=== PATIENT | female | born 1950 | race Caucasian/White ===

== ENCOUNTER 2016-04-26 10:26 | Inpatient (IN) | payer OTHER ==
[~2016-04-26] VITALS: Ht 168.9 cm; Wt 54.4 kg
[2016-04-26] MEDS ORDERED: DUONEB INH ONE ×2 (11:01)
[2016-04-26] MEDS ORDERED: NEB-ALBUTEROL 2.5 MG/3 ML INH ONE (11:02)
[2016-04-26] MEDS ORDERED: BISACODYL 10 MG SUPP RECTAL PRN (14:40)
[2016-04-26] MEDS ORDERED: GLUCAGON 1 MG VIAL IM PRN (14:40)
[2016-04-26] MEDS ORDERED: LOPERAMIDE 2 MG CAPSULE PO PRN (14:40)
[2016-04-26] MEDS ORDERED: FLEET ENEMA 132 ML BTL RECTAL PRN (14:40)
[2016-04-26] MEDS ORDERED: BISACODYL EC 5 MG TAB PO PRN (14:40)
[2016-04-26] MEDS ORDERED: MAG HYDROX 30 ML UDC PO PRN (14:40)
[2016-04-26] MEDS ORDERED: ONDANSETRON 4 MG VIAL IV PRN (14:40)
[2016-04-26] MEDS ORDERED: SALINE FLUSH 10 ML FLUSH PRN (14:40)
[2016-04-26] MEDS ORDERED: ALU/MAG/SIM 30 ML UDC PO PRN (14:40)
[2016-04-26] MEDS ORDERED: NICOTINE 21 MG/24 HR TRANSDERM PRN (14:40)
[2016-04-26] MEDS ORDERED: DEXTROSE 50% SYRINGE 50 ML IV PRN (14:40)
[2016-04-26] MEDS ORDERED: ACETAMINOPHEN 325 MG TAB PO PRN (14:40)
[2016-04-26] MEDS ORDERED: GUAIFEN/DM 10 ML UDC PO PRN (14:40)
[2016-04-26] MEDS ORDERED: Furosemide 20 MG TAB PO SCH (14:51)
[2016-04-26] MEDS ORDERED: SPIRONOLACTONE 25 MG TAB PO SCH (14:51)
[2016-04-26] MEDS ORDERED: KCL CR 10 MEQ TAB PO SCH (14:51)
[2016-04-26] MEDS ORDERED: MDI-SPIRIVA 5 DOSES INH SCH (14:52)
[2016-04-26] MEDS: DUONEB INH SCH ×3 (15:00→23:30)
[2016-04-26 17:55] VITALS: BP_SYST 104; RESP 20; TEMP 98.1
[2016-04-26] MEDS: NEB-NACL 3% 4 ML NEBU INH SCH ×2 (18:30→22:30)
[2016-04-26] MEDS: SODIUM CHLORIDE 0.9% 1,000 ML IV SCH (19:39)
[2016-04-26] MEDS: CEFTRIAXONE 1 GM in SODIUM CHLORIDE 0.9% 50 ML IV SCH (19:39)
[2016-04-26 20:27] VITALS: RESP 22
[2016-04-26] MEDS: NEB-BROVANA 15 MCG/2 ML INH SCH (20:27)
[2016-04-26] MEDS: NEB-BUDESONIDE 0.5 MG INH SCH (20:27)
[2016-04-26 20:31] VITALS: BP_SYST 102; BP_SYST 110; RESP 22; TEMP 97.1; TEMP 97.6
[2016-04-26] MEDS: FAMOTIDINE 20 MG TAB PO SCH (20:33)
[2016-04-26] MEDS: PREDNISONE 20 MG TAB PO SCH (20:33)
[2016-04-26] MEDS: THIAMINE 100 MG TAB PO SCH (20:33)
[2016-04-26] MEDS: SOLIFENACIN 5 MG TAB PO SCH (20:33)
[2016-04-26] MEDS: SALINE FLUSH 10 ML FLUSH SCH (20:34)
[2016-04-26] MEDS: TRAZODONE 50 MG TAB PO SCH (20:35)
[2016-04-27] MEDS: DUONEB INH SCH ×6 (02:56→22:57)
[2016-04-27 04:35] VITALS: BP_SYST 110; RESP 16; TEMP 96.5
[2016-04-27] MEDS: SODIUM CHLORIDE 0.9% FLUSH BAG 500 ML IV SCH (06:00)
[2016-04-27] MEDS: NEB-BUDESONIDE 0.5 MG INH SCH ×2 (07:06→19:31)
[2016-04-27] MEDS: NEB-BROVANA 15 MCG/2 ML INH SCH ×2 (07:06→19:31)
[2016-04-27] MEDS: NEB-NACL 3% 4 ML NEBU INH SCH ×4 (07:07→22:57)
[2016-04-27 07:20] VITALS: BP_SYST 98; RESP 18; TEMP 97.1
[2016-04-27] MEDS: SALINE FLUSH 10 ML FLUSH SCH ×2 (08:00→20:00)
[2016-04-27 09:09] VITALS: Ht 168.9 cm; Wt 54.4 kg
[2016-04-27] MEDS: THIAMINE 100 MG TAB PO SCH ×2 (10:12→21:43)
[2016-04-27] MEDS: PREDNISONE 20 MG TAB PO SCH (10:12)
[2016-04-27] MEDS: SOLIFENACIN 5 MG TAB PO SCH (10:12)
[2016-04-27] MEDS: CEFTRIAXONE 1 GM in SODIUM CHLORIDE 0.9% 50 ML IV SCH (10:12)
[2016-04-27] MEDS: FAMOTIDINE 20 MG TAB PO SCH ×2 (10:13→21:43)
[2016-04-27 10:53] VITALS: BP_SYST 104; RESP 16; TEMP 97.1
[2016-04-27 15:41] VITALS: BP_SYST 114; RESP 18; TEMP 97.9
[2016-04-27] MEDS: SODIUM CHLORIDE 0.9% 1,000 ML IV SCH (17:38)
[2016-04-27 20:13] VITALS: BP_SYST 100; RESP 20; TEMP 96.8
[2016-04-27] MEDS: TRAZODONE 50 MG TAB PO SCH (21:43)
[2016-04-28] VITALS (7 sets, daily range): BP systolic 108–136; RESP 16–20; TEMP 96.8–97.9
[2016-04-28] MEDS: SODIUM CHLORIDE 0.9% 1,000 ML IV SCH (02:53)
[2016-04-28] MEDS: SODIUM CHLORIDE 0.9% FLUSH BAG 500 ML IV SCH (05:30)
[2016-04-28] MEDS: SALINE FLUSH 10 ML FLUSH SCH ×2 (08:00→20:00)
[2016-04-28] MEDS: FAMOTIDINE 20 MG TAB PO SCH ×2 (08:24→20:01)
[2016-04-28] MEDS: THIAMINE 100 MG TAB PO SCH ×2 (08:24→20:01)
[2016-04-28] MEDS: CEFTRIAXONE 1 GM in SODIUM CHLORIDE 0.9% 50 ML IV SCH (08:24)
[2016-04-28] MEDS: SOLIFENACIN 5 MG TAB PO SCH (08:24)
[2016-04-28] MEDS: PREDNISONE 20 MG TAB PO SCH (08:25)
[2016-04-28] MEDS: NEB-BROVANA 15 MCG/2 ML INH SCH (18:25)
[2016-04-28] MEDS: NEB-NACL 3% 4 ML NEBU INH SCH ×2 (18:25→22:48)
[2016-04-28] MEDS: DUONEB INH SCH ×2 (18:25→22:48)
[2016-04-28] MEDS: NEB-BUDESONIDE 0.5 MG INH SCH (18:25)
[2016-04-28] MEDS: TRAZODONE 50 MG TAB PO SCH (20:02)
[2016-04-29] MEDS: DUONEB INH SCH ×3 (03:17→10:31)
[2016-04-29] MEDS: SODIUM CHLORIDE 0.9% FLUSH BAG 500 ML IV SCH (04:33)
[2016-04-29 04:40] VITALS: BP_SYST 116; RESP 16; TEMP 97.7
[2016-04-29] MEDS: SODIUM CHLORIDE 0.9% 1,000 ML IV SCH (05:35)
[2016-04-29] MEDS: NEB-BROVANA 15 MCG/2 ML INH SCH (06:22)
[2016-04-29] MEDS: NEB-BUDESONIDE 0.5 MG INH SCH (06:22)
[2016-04-29] MEDS: NEB-NACL 3% 4 ML NEBU INH SCH ×2 (06:22→10:31)
[2016-04-29 07:53] VITALS: BP_SYST 102; RESP 18; TEMP 96.6
[2016-04-29] MEDS: SALINE FLUSH 10 ML FLUSH SCH (08:00)
[2016-04-29] MEDS: CEFTRIAXONE 1 GM in SODIUM CHLORIDE 0.9% 50 ML IV SCH (08:19)
[2016-04-29] MEDS: THIAMINE 100 MG TAB PO SCH (08:20)
[2016-04-29] MEDS: FAMOTIDINE 20 MG TAB PO SCH (08:21)
[2016-04-29] MEDS: SOLIFENACIN 5 MG TAB PO SCH (08:21)
[2016-04-29] MEDS: PREDNISONE 20 MG TAB PO SCH (08:21)
[2016-04-29 11:18] VITALS: BP_SYST 102; RESP 20; TEMP 98.4
[2016-04-29 12:08] VITALS: BP_SYST 102; RESP 20; TEMP 98.4
== END 2016-04-29 14:16 | disposition home or self-care (01) | DRG 189 ==
LOC: ENRESERVDT → ENRESERVTM → ER 10:26 → ENPENDDIS 15:02 → EMR 15:02 → 4NT 17:59
PROVIDERS: ADMIT Family Medicine; ATTEND Family Medicine
DX: J96.21 Acute and chronic respiratory failure with hypoxia (principal); E46 Unspecified protein-calorie malnutrition; J94.2 Hemothorax; E87.1 Hypo-osmolality and hyponatremia; J44.1 Chronic obstructive pulmonary disease with (acute) exacerbation; Z68.1 Body mass index [BMI] 19.9 or less, adult; Z72.0 Tobacco use; B19.20 Unspecified viral hepatitis C without hepatic coma; F32.9 Major depressive disorder, single episode, unspecified; M06.9 Rheumatoid arthritis, unspecified; R73.9 Hyperglycemia, unspecified; T38.0X5A Adverse effect of glucocorticoids and synthetic analogues, initial encounter; Z79.51 Long term (current) use of inhaled steroids; Z85.41 Personal history of malignant neoplasm of cervix uteri; Z90.13 Acquired absence of bilateral breasts and nipples
CPT/HCPCS: 71010; 74230; 80048; 80053; 82553; 82947; 83880; 84484; 85025; 87299; 87804; 93005; 94640; 94667; 94668; 94799; 99223; 99232; 99233; 99239

== ENCOUNTER 2016-05-09 17:38 | Inpatient (IN) | payer OTHER ==
[~2016-05-09] VITALS: Ht 167.6 cm; Wt 55.4 kg
[2016-05-09] MEDS ORDERED: DUONEB INH ONE (17:53)
[2016-05-09] MEDS ORDERED: NEB-ALBUTEROL 2.5 MG/3 ML INH ONE ×2 (17:53→18:20)
[2016-05-09] MEDS ORDERED: ONDANSETRON 4 MG VIAL IV PRN (20:05)
[2016-05-09] MEDS ORDERED: SALINE FLUSH 10 ML FLUSH PRN (20:05)
[2016-05-09 22:00] VITALS: BP_SYST 118; BP_SYST 120; RESP 22; TEMP 98.2
[2016-05-09 22:10] VITALS: BMI 19.7
[2016-05-09 23:00] VITALS: BP_SYST 108; RESP 18; TEMP 96
[2016-05-09] MEDS: DUONEB INH SCH ×2 (23:00→23:06)
[2016-05-09] MEDS: LEVOFLOXACIN 750 MG/150 ML 150 ML IV SCH (23:01)
[2016-05-09] MEDS: SALINE FLUSH 10 ML FLUSH SCH (23:01)
[2016-05-09] MEDS: THIAMINE 100 MG TAB PO SCH (23:02)
[2016-05-09] MEDS: TRAZODONE 50 MG TAB PO SCH (23:02)
[2016-05-09] MEDS: METHYLPRED SOD SUCC 125 MG/2 ML VIAL IV SCH (23:03)
[2016-05-09 23:11] VITALS: RESP 22
[2016-05-10 04:19] VITALS: BP_SYST 104; RESP 18; TEMP 96.6
[2016-05-10] MEDS: SODIUM CHLORIDE 0.9% FLUSH BAG 500 ML IV SCH (05:54)
[2016-05-10 07:22] VITALS: BP_SYST 106; RESP 18; TEMP 97.4
[2016-05-10] MEDS: DUONEB INH SCH ×5 (07:45→23:48)
[2016-05-10] MEDS: SALINE FLUSH 10 ML FLUSH SCH (08:08)
[2016-05-10] MEDS: METHYLPRED SOD SUCC 125 MG/2 ML VIAL IV SCH (08:09)
[2016-05-10] MEDS: LEVOFLOXACIN 750 MG/150 ML 150 ML IV SCH (08:09)
[2016-05-10] MEDS ORDERED: MISSING DOSE XX ONE (08:10)
[2016-05-10] MEDS: THIAMINE 100 MG TAB PO SCH ×2 (08:13→20:51)
[2016-05-10 09:48] VITALS: Ht 167.6 cm; Wt 55.4 kg
[2016-05-10] MEDS ORDERED: NEB-XOPENEX 1.25 MG/3 ML INH PRN (10:05)
[2016-05-10 11:01] VITALS: BP_SYST 114; RESP 16; TEMP 97.3
[2016-05-10] MEDS: SOLIFENACIN 5 MG TAB PO SCH (11:05)
[2016-05-10] MEDS: Furosemide 20 MG TAB PO SCH (11:06)
[2016-05-10] MEDS: FAMOTIDINE 20 MG TAB PO SCH ×2 (11:06→20:52)
[2016-05-10] MEDS: BUSPIRONE HCL 15 MG TAB PO SCH ×2 (11:06→20:52)
[2016-05-10] MEDS: ENOXAPARIN 30 MG/0.3 ML SYR SUBQ SCH (11:07)
[2016-05-10] MEDS: NEB-NACL 3% 4 ML NEBU INH SCH ×3 (12:03→23:48)
[2016-05-10] MEDS: NEB-BUDESONIDE 0.5 MG INH SCH ×2 (12:03→19:30)
[2016-05-10 15:20] VITALS: BP_SYST 110; RESP 18; TEMP 97.4
[2016-05-10] MEDS: METHYLPRED SOD SUCC 40 MG VIAL IV SCH (17:11)
[2016-05-10] MEDS: ALPRAZOLAM 0.25 MG TAB PO PRN (17:12)
[2016-05-10 19:00] VITALS: BP_SYST 120; RESP 18; TEMP 96.9
[2016-05-10] MEDS: NEB-BROVANA 15 MCG/2 ML INH SCH (19:29)
[2016-05-10] MEDS: TRAZODONE 50 MG TAB PO SCH (20:52)
[2016-05-10] MEDS: ESCITALOPRAM 10 MG TAB PO SCH (20:53)
[2016-05-11 00:17] VITALS: BP_SYST 124; RESP 22; TEMP 97.1
[2016-05-11] MEDS: METHYLPRED SOD SUCC 40 MG VIAL IV SCH ×2 (00:31→08:23)
[2016-05-11] MEDS: SALINE FLUSH 10 ML FLUSH SCH ×3 (00:32→20:13)
[2016-05-11] MEDS: ALPRAZOLAM 0.25 MG TAB PO PRN ×2 (00:32→22:08)
[2016-05-11] MEDS: DUONEB INH SCH ×6 (03:34→22:39)
[2016-05-11 04:01] VITALS: BP_SYST 120; RESP 18; TEMP 96.3
[2016-05-11] MEDS: NEB-BROVANA 15 MCG/2 ML INH SCH ×2 (07:01→19:15)
[2016-05-11] MEDS: NEB-NACL 3% 4 ML NEBU INH SCH ×4 (07:01→22:39)
[2016-05-11] MEDS: NEB-BUDESONIDE 0.5 MG INH SCH ×2 (07:01→19:15)
[2016-05-11 07:29] VITALS: BP_SYST 116; RESP 20; TEMP 96.4
[2016-05-11] MEDS: SODIUM CHLORIDE 0.9% FLUSH BAG 500 ML IV SCH (08:22)
[2016-05-11] MEDS: ENOXAPARIN 30 MG/0.3 ML SYR SUBQ SCH (08:22)
[2016-05-11] MEDS: LEVOFLOXACIN 750 MG/150 ML 150 ML IV SCH (08:23)
[2016-05-11] MEDS: BUSPIRONE HCL 15 MG TAB PO SCH ×2 (08:23→20:12)
[2016-05-11] MEDS: FAMOTIDINE 20 MG TAB PO SCH ×2 (08:23→20:12)
[2016-05-11] MEDS: SOLIFENACIN 5 MG TAB PO SCH (08:23)
[2016-05-11] MEDS: THIAMINE 100 MG TAB PO SCH ×2 (08:23→20:12)
[2016-05-11 11:58] VITALS: BP_SYST 130; RESP 22; TEMP 96.9
[2016-05-11] MEDS ORDERED: SODIUM CHLORIDE 0.9% 1,000 ML IV ONE (12:05)
[2016-05-11 15:32] VITALS: BP_SYST 126; RESP 20; TEMP 97
[2016-05-11 19:00] VITALS: BP_SYST 129; RESP 22; TEMP 98.2
[2016-05-11] MEDS: ESCITALOPRAM 10 MG TAB PO SCH (20:12)
[2016-05-11] MEDS: TRAZODONE 50 MG TAB PO SCH (20:13)
[2016-05-12] VITALS (9 sets, daily range): BP systolic 100–120; RESP 18–22; TEMP 97–98.8
[2016-05-12] MEDS: DUONEB INH SCH ×6 (02:54→22:45)
[2016-05-12] MEDS: SODIUM CHLORIDE 0.9% FLUSH BAG 500 ML IV SCH (06:35)
[2016-05-12] MEDS ORDERED: MISSING DOSE XX ONE (07:45)
[2016-05-12] MEDS: NEB-BUDESONIDE 0.5 MG INH SCH ×2 (07:48→19:00)
[2016-05-12] MEDS: NEB-BROVANA 15 MCG/2 ML INH SCH ×2 (07:48→19:00)
[2016-05-12] MEDS: NEB-NACL 3% 4 ML NEBU INH SCH ×4 (07:49→22:45)
[2016-05-12] MEDS: FAMOTIDINE 20 MG TAB PO SCH ×2 (08:39→21:28)
[2016-05-12] MEDS: BUSPIRONE HCL 15 MG TAB PO SCH ×2 (08:39→21:28)
[2016-05-12] MEDS: Furosemide 20 MG TAB PO SCH (08:39)
[2016-05-12] MEDS: SOLIFENACIN 5 MG TAB PO SCH (08:39)
[2016-05-12] MEDS: PREDNISONE 20 MG TAB PO SCH (08:39)
[2016-05-12] MEDS: THIAMINE 100 MG TAB PO SCH ×2 (08:39→21:28)
[2016-05-12] MEDS: LEVOFLOXACIN 750 MG/150 ML 150 ML IV SCH (08:40)
[2016-05-12] MEDS: SALINE FLUSH 10 ML FLUSH SCH ×2 (08:40→21:29)
[2016-05-12] MEDS: ENOXAPARIN 30 MG/0.3 ML SYR SUBQ SCH (08:40)
[2016-05-12] MEDS: ESCITALOPRAM 10 MG TAB PO SCH (21:28)
[2016-05-12] MEDS: TRAZODONE 50 MG TAB PO SCH (21:28)
[2016-05-12] MEDS: ALPRAZOLAM 0.25 MG TAB PO PRN (23:08)
[2016-05-13] MEDS: DUONEB INH SCH ×5 (02:31→22:54)
[2016-05-13 04:22] VITALS: BP_SYST 108; RESP 18; TEMP 97.9
[2016-05-13] MEDS: SODIUM CHLORIDE 0.9% FLUSH BAG 500 ML IV SCH (05:45)
[2016-05-13 07:55] VITALS: BP_SYST 92; RESP 16; TEMP 98.2
[2016-05-13] MEDS: NEB-BROVANA 15 MCG/2 ML INH SCH ×2 (08:05→19:07)
[2016-05-13] MEDS: NEB-NACL 3% 4 ML NEBU INH SCH ×4 (08:05→22:54)
[2016-05-13] MEDS: NEB-BUDESONIDE 0.5 MG INH SCH ×2 (08:05→19:07)
[2016-05-13] MEDS: THIAMINE 100 MG TAB PO SCH ×2 (08:17→21:03)
[2016-05-13] MEDS: BUSPIRONE HCL 15 MG TAB PO SCH ×2 (08:17→21:03)
[2016-05-13] MEDS: LEVOFLOXACIN 750 MG TAB PO SCH (08:17)
[2016-05-13] MEDS: FAMOTIDINE 20 MG TAB PO SCH ×2 (08:17→21:03)
[2016-05-13] MEDS: SOLIFENACIN 5 MG TAB PO SCH (08:17)
[2016-05-13] MEDS: PREDNISONE 20 MG TAB PO SCH (08:18)
[2016-05-13] MEDS: SALINE FLUSH 10 ML FLUSH SCH ×2 (08:18→21:03)
[2016-05-13] MEDS: ENOXAPARIN 30 MG/0.3 ML SYR SUBQ SCH (08:19)
[2016-05-13] MEDS: BISOPROLOL 5 MG TAB PO SCH (08:48)
[2016-05-13] MEDS ORDERED: MISSING DOSE XX ONE (11:25)
[2016-05-13 11:45] VITALS: BP_SYST 112; RESP 20; TEMP 98.3
[2016-05-13] MEDS ORDERED: DUONEB INH SCH (12:00)
[2016-05-13 19:30] VITALS: BP_SYST 112; RESP 20; TEMP 97.9
[2016-05-13] MEDS: TRAZODONE 50 MG TAB PO SCH (21:03)
[2016-05-13] MEDS: ESCITALOPRAM 10 MG TAB PO SCH (21:03)
[2016-05-14] MEDS: DUONEB INH SCH ×4 (02:27→14:38)
[2016-05-14 03:30] VITALS: BP_SYST 100; RESP 18; TEMP 97.7
[2016-05-14] MEDS: SODIUM CHLORIDE 0.9% FLUSH BAG 500 ML IV SCH (06:00)
[2016-05-14] MEDS: NEB-BUDESONIDE 0.5 MG INH SCH (08:06)
[2016-05-14] MEDS: NEB-BROVANA 15 MCG/2 ML INH SCH (08:06)
[2016-05-14] MEDS: NEB-NACL 3% 4 ML NEBU INH SCH ×2 (08:06→10:56)
[2016-05-14 08:17] VITALS: BP_SYST 102; RESP 18; TEMP 98
[2016-05-14] MEDS: LEVOFLOXACIN 750 MG TAB PO SCH (08:26)
[2016-05-14] MEDS: BUSPIRONE HCL 15 MG TAB PO SCH (08:26)
[2016-05-14] MEDS: SALINE FLUSH 10 ML FLUSH SCH (08:26)
[2016-05-14] MEDS: PREDNISONE 20 MG TAB PO SCH (08:27)
[2016-05-14] MEDS: Furosemide 20 MG TAB PO SCH (08:27)
[2016-05-14] MEDS: BISOPROLOL 5 MG TAB PO SCH (08:27)
[2016-05-14] MEDS: FAMOTIDINE 20 MG TAB PO SCH (08:27)
[2016-05-14] MEDS: THIAMINE 100 MG TAB PO SCH (08:27)
[2016-05-14] MEDS: SOLIFENACIN 5 MG TAB PO SCH (08:27)
[2016-05-14] MEDS: ENOXAPARIN 30 MG/0.3 ML SYR SUBQ SCH (08:30)
[2016-05-14 12:50] VITALS: BP_SYST 112; RESP 20; TEMP 97.1
[2016-05-14 13:36] VITALS: BP_SYST 112; RESP 20; TEMP 97.1
== END 2016-05-14 14:45 | disposition home or self-care (01) | DRG 189 ==
LOC: ENRESERVTM → ENRESERVDT → ER 17:38 → EMR 20:02 → ENPENDDIS 20:02 → 4THW 21:54 → 3NT 05-12 15:40
PROVIDERS: ADMIT Internal Medicine; ATTEND Internal Medicine
DX: J96.21 Acute and chronic respiratory failure with hypoxia (principal); E46 Unspecified protein-calorie malnutrition; E87.2 Acidosis; D69.6 Thrombocytopenia, unspecified; J44.1 Chronic obstructive pulmonary disease with (acute) exacerbation; J94.2 Hemothorax; Z68.1 Body mass index [BMI] 19.9 or less, adult; I50.9 Heart failure, unspecified; Z87.891 Personal history of nicotine dependence; Z87.440 Personal history of urinary (tract) infections; F41.9 Anxiety disorder, unspecified; F32.9 Major depressive disorder, single episode, unspecified; B18.2 Chronic viral hepatitis C; Z85.3 Personal history of malignant neoplasm of breast; R79.89 Other specified abnormal findings of blood chemistry; Z28.21 Immunization not carried out because of patient refusal
CPT/HCPCS: 36415; 36600; 71010; 80048; 80053; 82553; 82803; 83605; 83735; 83880; 84145; 84484; 85025; 85379; 86738; 87040; 93005; 94640; 94799; 99222; 99232; 99233